=== PATIENT | female | born 2000 | race African-American/Black ===

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

== ENCOUNTER 2023-06-20 11:44 | Emergency (ER) | payer OTHER ==
[~2023-06-20] VITALS: Ht 160 cm; Wt 63.7 kg
[~2023-06-20 11:44] MED LIST: DIFL150T PO; FERR1TAB8 PO; NAPR-837 PO
[2023-06-20] MEDS ORDERED: AMOX875T2 PO (12:44)
[2023-06-20] MEDS: AUGMENTIN 875 MG TAB PO ONE (12:52)
[2023-06-20 12:56] VITALS: BP 111/68; TEMP 98.7; O2SAT 100
== END 2023-06-20 12:57 | disposition home or self-care (01) ==
LOC: M ED 11:44
DX: J01.90 Acute sinusitis, unspecified (principal); Z79.2 Long term (current) use of antibiotics; Z79.899 Other long term (current) drug therapy

== ENCOUNTER 2023-07-17 12:18 | Emergency (ER) | payer OTHER ==
[~2023-07-17] VITALS: Ht 160 cm; Wt 62.3 kg
[~2023-07-17 12:18] MED LIST changes: +AMOX875T2 PO
[2023-07-17] MEDS: KETOROLAC 30 MG/ML 1ML VIAL IV ONE (12:45)
[2023-07-17 13:25] LABS: MEAN CORPUSCULAR HEMOGLOBIN 26.1 pg (27.0-33.0); MEAN CORPUSCULAR HGB CONC 31.8 g/dl (32.0-36.5); MEAN CORPUSCULAR VOLUME 82.1 fl (80.0-96.0); PLATELET COUNT, AUTOMATED 351 10^3/uL (150-450); RED BLOOD COUNT 5.36 10^6/uL (4.00-5.40); WHITE BLOOD COUNT 4.7 10^3/uL (4.0-10.0)
[2023-07-17 13:55] LABS: BLOOD UREA NITROGEN 8 MG/DL (9-23); CALCIUM LEVEL 9.1 MG/DL (8.5-10.1); CARBON DIOXIDE LEVEL 25 MMOL/L (20-31); CHLORIDE LEVEL 106 MMOL/L (98-107); CREATININE FOR GFR 0.78 MG/DL (0.55-1.30); GLUCOSE, FASTING 93 MG/DL (60-100); POTASSIUM SERUM 4.5 MMOL/L (3.5-5.1); SODIUM LEVEL 140 MMOL/L (136-145)
[2023-07-17 14:46] VITALS: BP 118/75; TEMP 97.4; O2SAT 98
== END 2023-07-17 14:49 | disposition home or self-care (01) ==
LOC: M ED 12:18
DX: N94.4 Primary dysmenorrhea (principal); F17.290 Nicotine dependence, other tobacco product, uncomplicated; F10.10 Alcohol abuse, uncomplicated; Z79.899 Other long term (current) drug therapy
CPT/HCPCS: 80048; 84702; 85027; 96374; 99284; J1885

== ENCOUNTER 2023-09-09 08:47 | Emergency (ER) | payer OTHER ==
[~2023-09-09] VITALS: Ht 160 cm; Wt 65.9 kg
[2023-09-09 09:31] LABS: BASO % 0.3 % (0.0-1.0); EOS # 0.1 10^3/uL (0.0-0.5); EOS % 3.4 % (0.0-3.0); HEMATOCRIT 41.4 % (36.0-47.0); LYMPH % 30.6 % (24.0-44.0); MEAN CORPUSCULAR HEMOGLOBIN 25.6 pg (27.0-33.0); MEAN CORPUSCULAR HGB CONC 31.4 g/dl (32.0-36.5); MEAN CORPUSCULAR VOLUME 81.7 fl (80.0-96.0); MONO # 0.3 10^3/uL (0.0-0.8); MONO % 7.6 % (2.0-8.0); NEUTROPHILS # 1.9 10^3/uL (1.5-8.5); NEUTROPHILS % 57.8 % (36.0-66.0); PLATELET COUNT, AUTOMATED 271 10^3/uL (150-450); RED BLOOD COUNT 5.07 10^6/uL (4.00-5.40); WHITE BLOOD COUNT 3.3 10^3/uL (4.0-10.0)
[2023-09-09 09:58] LABS: LIPASE 40 U/L (12-53)
[2023-09-09 10:00] LABS: ALKALINE PHOSPHATASE 78 U/L (46-116); ALT/SGPT 14 U/L (7.0-40); AST/SGOT 11 U/L (<34); BILIRUBIN,DIRECT 0.2 MG/DL (<0.4); BILIRUBIN,TOTAL 0.7 MG/DL (0.3-1.2); HCG, SERUM QUALITATIVE NEGATIVE (NEGATIVE); TOTAL PROTEIN 7.1 G/DL (5.7-8.2)
[2023-09-09] MEDS: NAPROXEN 250 MG TAB PO ONE (10:07)
[2023-09-09] MEDS: ONDANSETRON 4MG ORAL DISINTEGRATING TAB PO ONE (10:08)
[2023-09-09] MEDS ORDERED: ONDA-282 PO (12:14)
[2023-09-09 12:23] VITALS: BP 112/64; TEMP 98; O2SAT 98
== END 2023-09-09 12:28 | disposition home or self-care (01) ==
LOC: M ED 08:47
DX: N94.6 Dysmenorrhea, unspecified (principal); F17.290 Nicotine dependence, other tobacco product, uncomplicated; Z79.899 Other long term (current) drug therapy

== ENCOUNTER 2023-11-02 10:59 | Emergency (ER) | payer OTHER ==
[~2023-11-02] VITALS: Ht 160 cm; Wt 62.4 kg
[2023-11-02 10:59] VITALS: BP 113/73; TEMP 96.4; O2SAT 98
[~2023-11-02 10:59] MED LIST changes: +ONDA-282 PO
[2023-11-02] MEDS: ONDANSETRON 4MG ORAL DISINTEGRATING TAB PO ONE (12:13)
[2023-11-02] MEDS: ACETAMINOPHEN TAB 650MG DOSE (2X325MG) PO ONE (12:40)
[2023-11-02] MEDS ORDERED: ONDA-282 PO (12:57)
== END 2023-11-02 13:08 | disposition home or self-care (01) ==
LOC: M ED 10:59
DX: R11.2 Nausea with vomiting, unspecified (principal); R51.9 Headache, unspecified; F10.10 Alcohol abuse, uncomplicated; Z79.899 Other long term (current) drug therapy

== ENCOUNTER 2023-11-19 12:36 | Emergency (ER) | payer OTHER ==
[~2023-11-19] VITALS: Ht 160 cm; Wt 62.6 kg
[2023-11-19 14:31] VITALS: BP 119/68; TEMP 98.2; O2SAT 100
[2023-11-19] MEDS: LIDOCAINE W/EPINEPHRINE 1% 20ML VIAL SC ONE (14:57)
[2023-11-19] MEDS: NEOSPORIN OINT 0.9 GM PKT TOP ONE (15:51)
[2023-11-19] MEDS ORDERED: BACI500O8 TOP (15:51)
== END 2023-11-19 15:59 | disposition home or self-care (01) ==
LOC: M ED 12:36
DX: S91.312A Laceration without foreign body, left foot, initial encounter (principal); Y92.019 Unspecified place in single-family (private) house as the place of occurrence of the external cause; Y93.9 Activity, unspecified; Y99.9 Unspecified external cause status; F17.210 Nicotine dependence, cigarettes, uncomplicated; Z79.2 Long term (current) use of antibiotics

== ENCOUNTER 2023-11-26 15:44 | Emergency (ER) | payer OTHER ==
[~2023-11-26] VITALS: Ht 160 cm; Wt 62.6 kg
[~2023-11-26 15:44] MED LIST changes: +BACI500O8 TOP
[2023-11-26 15:47] VITALS: BP 114/68; TEMP 96.9; O2SAT 97
== END 2023-11-26 19:59 | disposition home or self-care (01) ==
LOC: M ED 15:44
DX: Z48.02 Encounter for removal of sutures (principal)

== ENCOUNTER → 2024-04-12 | Outpatient (REF) ==
[2024-04-13 12:52] LABS: HERPES ZOSTER, VARICELLA IgG 4.14 S/CO (>=1.00); RUBEOLA IgG ANTIBODY > 300.00 AU/mL (>16.49)
== END ==
LOC: M LAB 09:36
PROVIDERS: ATTEND Family Medicine
DX: Z02.1 Encounter for pre-employment examination (principal)

== ENCOUNTER 2024-05-05 07:06 | Emergency (ER) | payer BC, OTHER, SELFPAY ==
[~2024-05-05] VITALS: Ht 160 cm; Wt 56.6 kg
[2024-05-05] MEDS: ACETAMINOPHEN 500 MG TAB PO ONE (08:20)
[2024-05-05] MEDS: ONDANSETRON 4MG ORAL DISINTEGRATING TAB PO ONE (08:20)
[2024-05-05] MEDS: IBUPROFEN 600MG TAB PO ONE (08:20)
[2024-05-05 10:11] LABS: KETONE, URINE AUTO RFX 1+ mg/dL (NEGATIVE); LEUKOCYTE ESTERASE UR AUTO RFX NEGATIVE (NEGATIVE); MUCUS, URINE RFX MODERATE (NEGATIVE); NITRITE, URINE AUTO RFX NEGATIVE (NEGATIVE); RBC, URINE AUTO RFX 0 /HPF (0-3); SQUAM EPITHELIAL CELL UR AURFX 2 /HPF (0-6); WBC, URINE AUTO RFX 0 /HPF (0-3)
[2024-05-05 10:52] VITALS: BP 100/62; TEMP 98.4; O2SAT 100
== END 2024-05-05 10:53 | disposition home or self-care (01) ==
LOC: M ED 07:06
DX: R11.10 Vomiting, unspecified (principal); R19.7 Diarrhea, unspecified; F17.210 Nicotine dependence, cigarettes, uncomplicated

== ENCOUNTER → 2024-12-12 | Outpatient (REF) ==
[2024-12-12 13:38] LABS: SOFIA COVID ANTIGEN NEGATIVE (NEGATIVE)
== END ==
LOC: M EMP 08:35
PROVIDERS: ATTEND Family Medicine
DX: Z11.52 Encounter for screening for COVID-19 (principal)

== ENCOUNTER 2025-02-19 17:57 | Emergency (ER) | payer OTHER, SELFPAY ==
[~2025-02-19] VITALS: Ht 160 cm; Wt 53.1 kg
[2025-02-19 20:31] LABS: SOFIA COVID ANTIGEN NEGATIVE (NEGATIVE)
[2025-02-19] MEDS: IBUPROFEN 600 MG TAB PO ONE (21:01)
[2025-02-19 21:04] VITALS: BP 111/62; TEMP 98.7; O2SAT 97
== END 2025-02-19 21:07 | disposition home or self-care (01) ==
LOC: M ED 17:57
DX: J09.X9 Influenza due to identified novel influenza A virus with other manifestations (principal)